=== PATIENT | female | born 1960 | race Asian ===

== ENCOUNTER → 2022-05-07 11:27 | Outpatient (CLI) | payer OTHER, SELFPAY ==
--- NOTE | 2022-05-07 | DI.MG.S_ITS ---
BILATERAL DIGITAL SCREENING MAMMOGRAM 3D/2D WITH CAD: 05/07/2022 CLINICAL: Baseline exam. Routine screening. No prior exams were available for comparison. Both breasts are heterogeneously dense, which may obscure small masses (category c / 51-75% glandular tissue). Current study was also evaluated with a Computer Aided Detection (CAD) system. There are benign post operative findings in the right breast. No significant masses, calcifications, or other findings are seen in either breast. IMPRESSION: BENIGN There is no mammographic evidence of malignancy. A 1 year screening mammogram is recommended. Based on the Tyrer Cuzick model (a risk assessment model) the patient's lifetime risk is 8.9% and her 10 year risk is 4.0%. According to the ACR, ACS, and NCCN guidelines, an annual breast MRI exam along with mammogram is recommended if the patient's lifetime risk is 20% or greater. This exam was interpreted at Station ID: [id number]. NOTE: For mammograms, a report in lay terms will be sent to the patient. Approximately 15% of breast malignancies will not be visualized mammographically. In the management of a palpable breast mass, a negative mammogram must not discourage biopsy of a clinically suspicious lesion. Electronically Signed By: Rafael paige/edith:05/08/2022 08:50:06 letter sent: Normal Exam ACR BI-RADS Category 2: Benign Finding(s) 3342F
--- NOTE | 2022-05-07 12:28 | DI.DEXA.S_ITS ---
Indication: postmenopausal; screening for osteoporosis; Referring Provider: JBO EVANS Study: Bone densitometry was performed. Exam Date: May 07, 2022 Accession number: [id number] Bone Density: Region BMD T-score Z-score Classification AP Spine(L1-L4) 0.846 -1.8 -0.2 Osteopenia Femoral Neck (Left) 0.642 -1.9 -0.4 Osteopenia Total Hip (Left) 0.872 -0.6 0.6 Normal Femoral Neck (Right) 0.671 -1.6 -0.2 Osteopenia Total Hip (Right) 0.860 -0.7 0.5 Normal Total Hip Mean 0.866 -0.7 0.6 Normal World Health Organization criteria for BMD impression classify patients as: Normal (T-score at or above -1.0), Osteopenia (T-score between -1.0 and -2.5), or Osteoporosis (T-score at or below -2.5). 10-year Fracture Risk(1): Major Osteoporotic Fracture 5.1% Hip Fracture 0.7% Reported Risk Factors: [place] (), Neck BMD=0.642, BMI=22.9 (1) FRAX(R) Version 3.08. Fracture probability calculated for an untreated patient. Fracture probability may be lower if the patient has received treatment. Impression: The patient has low bone mass, based on the Left Femoral Neck T-score. The patient has an estimated ten-year risk of hip fracture of 0.7% and an estimated ten-year risk of major fracture of 5.1%, based on the WHO FRAX algorithm. Discussion: BONE DENSITY IS LOW AT ONE OR MORE SKELETAL SITES. This patient's lowest T-score is low at one or more skeletal sites. It meets the World Health Organization's (WHO) criteria for ?low bone mass? (T-score between -1.0 and -2.5). The patient's 10-year risk of fracture as calculated by FRAX is less than the threshold where pharmacological therapy is recommended by the National Osteoporosis Foundation (NOF). However, all treatment decisions require clinical judgment and consideration of individual patient factors, including patient preferences, comorbidities, previous drug use, risk factors not captured in the FRAX model (e.g., frailty, falls, vitamin D deficiency, increased bone turnover, interval significant decline in bone density) and possible under or overestimation of fracture risk by FRAX. The patient should follow a healthful lifestyle (good nutrition with adequate calcium and vitamin D, and appropriate weight-bearing exercise). Follow-Up: Consider repeating this study in 2 to 3 years to reassess this patient's status, or sooner if there is some new clinical indication. Reported by: KRISHAN MORILLO MD on 05/07/2022 12:37:00 PM.
== END ==
PROVIDERS: PCP Family Medicine; Referring Provider Family Medicine; Visit Provider Family Medicine
DX: Z12.31 Encounter for screening mammogram for malignant neoplasm of breast (principal); Z78.0 Asymptomatic menopausal state; Z13.820 Encounter for screening for osteoporosis; M85.852 Other specified disorders of bone density and structure, left thigh
CPT/HCPCS: 77063; 77067; 77080

== ENCOUNTER 2024-03-09 23:19 | Emergency (ER) | payer OTHER, SELFPAY ==
[2024-03-09 23:32] VITALS: BP 163/78; PULSE 108; RESP 22; TEMP 37.7; O2SAT 97; BMI 26.6
--- NOTE | 2024-03-09 23:42 | DI.RAD.S_ITS ---
PROCEDURE: XR CHEST 1V INDICATIONS: suspected sepsis TECHNIQUE: One view of the chest was acquired. COMPARISON: None. FINDINGS: Surgical changes and devices: None. Lungs and pleura: Lungs are clear. No pleural effusions or pneumothorax. Mediastinum: Mediastinal contours appear normal. Heart size is normal. Bones and chest wall: No suspicious bony lesions. Overlying soft tissues appear unremarkable. IMPRESSION: No acute cardiopulmonary abnormality is seen. Approved by: Claire Bowser M.D.,Ph.D. on 03/10/2024 at 0:45
--- NOTE | 2024-03-09 23:52 | EKG_ITS ---
[address] [address] Test Date: 2024-03-09 Pat Name: Chelly Madrid Department: Located Within [facility] Room: Gender: Female [employer] Work[employer]: SANKET : 1960 Requested By: Order Number: [id number] Reading MD: Omid Dhillon Measurements Intervals [place] Rate: 116 P: 56 VT: 168 QRS: 59 QRSD: 70 T: 55 QT: 330 QTc: 458 Interpretive Statements Sinus tachycardia ST & T wave abnormality, consider anterior ischemia Electronically Signed On 03-12-2024 20:02:25 PST by Omid Dhillon
[2024-03-09 23:56] VITALS: PULSE 111; RESP 29
[2024-03-09 23:59] VITALS: BP 175/89; PULSE 113; RESP 24; O2SAT 97
[2024-03-10] VITALS: BP 176/88; PULSE 110; RESP 24; O2SAT 97
[2024-03-10 00:27] LABS: Add Manual Diff / Slide Review NO; Basophils Absolute Auto 0 /uL (0-100); Basophils Percent Auto 0.4 % (0-2); Eosinophils Absolute Auto 200 /uL (0-450); Eosinophils Percent Auto 1.6 % (2-4); Hematocrit 35.8 % (36-46); Hemoglobin 11.1 g/dL (12.0-16.0); Lymphocytes Absolute Auto 1900 /uL (1100-4500); Lymphocytes Percent Auto 17.8 % (25-40); Mean Corpuscular Hemoglobin 20.6 PG (26-34); Mean Corpuscular Volume 66.3 fL (80-100); Monocytes Absolute Auto 1100 /uL (0-900); Monocytes Percent Auto 10.6 % (3-14); Neutrophils Absolute Auto 7400 /uL (1500-7000); Neutrophils Percent Auto 69.6 % (50-75); Platelet Count 298 X10^3/uL (150-400); Red Cell Distribution Width 14.4 % (11.6-14.8); White Blood Cell Count 10.7 X10^3/uL (4.5-11.0)
[2024-03-10 00:30] VITALS: BP 159/76; PULSE 93; RESP 23; O2SAT 97
--- NOTE | 2024-03-10 00:31 | ED_ITS ---
HPI - General Adult General Chief complaint: Shortness of Breath/Dyspnea Stated complaint: SOB, cough, chills, fever Time Seen by Provider: 03/09/24 23:43 Source: patient Mode of arrival: Ambulatory History of Present Illness HPI narrative: 63-year-old female with cough for 1 month, feeling feverish last couple of days, with increasing shortness of breath. No chronic heart or lung problems. No history of tuberculosis, lung cancer, asthma, COPD. She denies lower extremity swelling. She denies history of heart failure problems. No exposure in household or close contacts with persons with recent COVID or influenza or other respiratory illness. No treatment tried. Related Data Allergies Allergy/AdvReac Type Severity Reaction Status Date / Time No Known Drug Allergies Allergy Verified 03/09/24 23:41 Patient History Social History Smoking Status: Never smoker Smoking Status: Never smoker Exam Narrative Exam Narrative: GENERAL: Well-developed patient, in mild distress. HEAD: Atraumatic. Normocephalic. EYES: Pupils equal round and reactive. Extraocular motions intact. No scleral icterus. No injection or drainage. ENT: Nose without bleeding, purulent drainage. Throat without erythema, tonsillar hypertrophy or exudate. Airway patent. NECK: Trachea midline. Non tender CARDIOVASCULAR: Mildly fast rate with regular rhythm, without murmurs, gallops, or rubs. RESPIRATORY: Clear to auscultation. Breath sounds equal bilaterally. No wheezes, rales, or rhonchi. GASTROINTESTINAL: Abdomen soft, non-tender, nondistended. EXTREMITIES: No edema or joint tenderness. BACK: Nontender without deformity or crepitance. No flank tenderness. NEURO: AOx3. Motor functions grossly nonfocal SKIN: No rash or erythema of visible areas Initial Vital Signs Initial Vital Signs: Vital Signs Temperature 99.8 F H 03/09/24 23:32 Pulse Rate 108 H 03/09/24 23:32 Respiratory Rate 22 03/09/24 23:32 Blood Pressure 163/78 H 03/09/24 23:32 Pulse Oximetry 97 03/09/24 23:32 Oxygen Delivery Method Room Air 03/09/24 23:32 Course Orders Ordered: Discontinued Medications Albuterol (Albuterol 2.5 Mg/3 Ml Neb (Adult)) 2.5 mg INH NOW ONE Stop: 03/10/24 00:34 Last Admin: 03/10/24 00:42 Dose: 2.5 mg Documented By: TRINA Albuterol (Albuterol Hfa Prepack) 1 box MISC DIRECTED ONE Stop: 03/10/24 01:36 Last Admin: 03/10/24 02:14 Dose: 1 box Documented By: ELSI Sodium Chloride (Normal Saline 0.9%) 1,000 mls @ 1,000 mls/hr IV BOLUS ONE Stop: 03/10/24 00:41 Last Infusion: 03/10/24 02:13 Dose: Infused Documented By: Admin: 03/10/24 00:36 Dose: 1,000 mls/hr Documented By: TRINA Ondansetron HCl (Ondansetron 4 Mg/2 Ml Inj) 4 mg IV NOW PRN PRN Reason: Nausea And Vomiting Ondansetron HCl (Ondansetron 4 Mg Odt) 4 mg SL NOW PRN PRN Reason: Nausea And Vomiting Vital Signs Vital signs: Vital Signs - 8 hr 03/09/24 23:32 03/09/24 23:56 03/09/24 23:59 Temperature 99.8 F H Pulse Rate 108 H 111 H 113 H Respiratory Rate 22 29 H 24 Blood Pressure 163/78 H Pulse Oximetry 97 97 Oxygen Delivery Method Room Air 03/09/24 23:59 03/10/24 00:00 03/10/24 00:00 Temperature Pulse Rate 110 H Respiratory Rate 24 Blood Pressure 175/89 H 176/88 H Pulse Oximetry 97 Oxygen Delivery Method 03/10/24 00:30 03/10/24 00:30 Temperature Pulse Rate 93 H Respiratory Rate 23 Blood Pressure 159/76 H Pulse Oximetry 97 Oxygen Delivery Method Medical Decision Making Lab Data Lab results reviewed: Yes I reviewed the patient's lab results. Lab results narrative: White blood cell count 36873, hemoglobin 11.1, platelets adequate. Basic metabolic panel unremarkable. Liver functions and lipase unremarkable. Lactate 2.1 noted, repeat lactate 1.7 lower. 03/10/24 00:11 03/10/24 00:11 Labs: Lab Results 03/10/24 03/10/24 03/10/24 Range/Units 00:11 00:20 02:05 WBC 10.7 (4.5-11.0) X10^3/uL RBC 5.40 H (4.0-5.2) X10^6/uL Hgb 11.1 L (12.0-16.0) g/dL Hct 35.8 L (36-46) % MCV 66.3 L (80-100) fL MCH 20.6 L (26-34) PG MCHC 31.0 (30-36) % RDW 14.4 (11.6-14.8) % Plt Count 298 (150-400) X10^3/uL Neut % (Auto) 69.6 (50-75) % Lymph % (Auto) 17.8 L (25-40) % [place] % (Auto) 10.6 (3-14) % Eos % (Auto) 1.6 L (2-4) % Baso % (Auto) 0.4 (0-2) % Neut # (Auto) 7400 H (9869-5841) /uL Lymph # (Auto) 1900 (2514-3566) /uL [place] # (Auto) 1100 H (0-900) /uL Eos # (Auto) 200 (0-450) /uL Baso # (Auto) 0 (0-100) /uL Platelet Estimate Adequate on smear RBC Morphology See below Hypochromasia 1+ H Anisocytosis 1+ H Microcytosis 1+ H PT 10.0 (9.4-12.5) SECONDS INR 0.9 (0.9-1.3) APTT 38 H (25.1-36.5) SECONDS Sodium 135 L (137-145) mmol/L Potassium 3.6 (3.4-5.1) mmol/L Chloride 101 (98-107) mmol/L Carbon Dioxide 22 (22-32) mmol/L BUN 8 (7-17) mg/dL Creatinine 0.82 (0.52-1.04) mg/dL Estimated GFR > 60 (>60) mL/min BUN/Creatinine Ratio 9.8 (6-22) Glucose 186 H (80-110) mg/dL Lactate 2.1 1.7 (0.7-2.1) mmol/L Calcium 10.0 (8.4-10.2) mg/dL Total Bilirubin 0.3 (0.2-1.3) mg/dL AST 38 H (14-36) IU/L ALT 41 H (<35) IU/L Alkaline Phosphatase 82 (38-126) U/L Total Protein 8.0 (6.3-8.2) g/dL Albumin 4.7 (3.5-5.0) g/dL Globulin 3.3 (1.7-4.1) g/dL Albumin/Globulin Ratio 1.4 (1.0-2.8) Lipase 154 (23-300) U/L Procalcitonin 0.103 (<0.5) ng/mL SARS-CoV-2 (PCR) Negative (Negative) Influenza A (RT-PCR) Flu a negative (NEGATIVE) Influenza B (RT-PCR) Flu b negative (NEGATIVE) RSV (PCR) Negative (Negative) ECG Data Attestation: I personally reviewed and interpreted this ECG as follows: Interpretation: Sinus tachycardia with rate of 116, no obvious ST segment elevation or depression changes. MI 168, QRS 70, QTC 458. MDM Narrative Medical decision making narrative: 63yo femal with recent weeks cough without specific diagnosis, more short of breath for two days, no fever, no chest pain, no leg swelling, mild sinus tachycardia noted, no leg swelling or tenderness. Covid/flu swa sent, trial of breathing treatment, CXR ordered, labs sent. EKG sinus tachy without obvious ischemia. CXR negative. Labs normal WBC, lactate 2.1 decreased to 1.7 after IV fluids. Tachycardia resolved after IVF. Doubt PE. History exam and course consistent with recent viral illness, possible component bronchospasm by subjective response to bronchodilator. Symptoms improved with breathing treatment, no oxygen requirement. Will DC on Albuterol inhaler with spacer, dispensed with teaching in ED. Home with family, Recheck with PCP, stable, improved, return precautions discussed. Discharge Plan Departure Patient Disposition: Home Clinical Impression: Acute upper respiratory infection, Shortness of breath Instructions: DI for Viral Upper Respiratory Infection -- Adult Activity Restrictions/Additional Instructions: Recent cough and sensation of shortness of breath. Normal oxygenation noted on triage vitals, no fever. Lab studies were sent, normal white blood cell count, no inflammatory changes, unremarkable blood test results. Swab was sent for COVID/influenza/RSV viruses and all were negative. Chest x-ray showed no obvious infiltrates, no infection or pneumonia changes noted. You had a breathing treatment and seemed to feel better with your shortness of breath. It is possible you might be having some bronchospasm that might be cough cold viral related, or perhaps not even infection related, could be in response to recent cold weather or other allergic irritant. Trial of inhaler for now as an outpatient. It is possible that you might be having viral unless that is not where the for pathogens on the swab, as there are many other viruses that are active that are not detectable on that swab. There are no specific antiviral medicines that are affected these many other viruses that could be active. Trial of inhaler for now. Please use the inhaler with a spacer. Albuterol inhaler with spacer, 2 puffs 4 times daily for the next week or so, then as needed. Recheck symptoms in the next few days with your regular doctor if symptoms persist. Return to this/nearest emergency department for any change worsening symptoms or any concerns prior Referrals: Oliva Candelaria MD [Primary Care Provider] - Stand Alone Forms: Patient Portal/API/Survey
[2024-03-10 00:33] LABS: INR 0.9 (0.9-1.3)
[2024-03-10 00:35] LABS: PTT Partial Thromboplastin Tim 38 SECONDS (25.1-36.5)
[2024-03-10] MEDS: SODIUM CHLORIDE 0.9% 1,000 ML 1000 ML IV (00:36)
[2024-03-10 00:37] LABS: Alanine Aminotransferase 41 IU/L (<35); Albumin 4.7 g/dL (3.5-5.0); Albumin Globulin Ratio 1.4 (1.0-2.8); Alkaline Phosphatase 82 U/L (38-126); Aspartate Aminotransferase 38 IU/L (14-36); BUN Creatinine Ratio 9.8 (6-22); Bilirubin Total 0.3 mg/dL (0.2-1.3); Blood Urea Nitrogen 8 mg/dL (7-17); Carbon Dioxide 22 mmol/L (22-32); Chloride 101 mmol/L (98-107); Estimated Glomerular Filt Rate > 60 mL/min (>60); Globulin 3.3 g/dL (1.7-4.1); Glucose 186 mg/dL (80-110); HEMOLYSIS < 15 (0-50); Lactate (Lactic Acid) 2.1 mmol/L (0.7-2.1); Lipase 154 U/L (23-300); Potassium 3.6 mmol/L (3.4-5.1); Sodium 135 mmol/L (137-145)
[2024-03-10] MEDS: ALBUTEROL 2.5 MG/3 ML NEB (ADULT) INH (00:42)
[2024-03-10 00:54] LABS: Procalcitonin 0.103 ng/mL (<0.5)
[2024-03-10 01:00] VITALS: BP 165/73; PULSE 95; RESP 24; O2SAT 98
[2024-03-10 01:02] LABS: Influenza A - CEPHEID Flu A NEGATIVE (NEGATIVE); Influenza B - CEPHEID Flu B NEGATIVE (NEGATIVE); Respiratory Syncytial Virus Negative (Negative)
[2024-03-10 01:03] LABS: COVID-19 CEPHEID 4-PLEX PCR Negative (Negative)
[2024-03-10 01:05] LABS: Platelet Estimate Adequate on smear
[2024-03-10 01:06] LABS: Anisocytosis 1+; Hypochromasia 1+; Microcytosis 1+
--- NOTE | 2024-03-10 01:07 | PC.NURSE ---
shortness of breath has improved after nebulizer treatment
[2024-03-10 01:30] VITALS: BP 173/82; PULSE 93; RESP 23; O2SAT 100
[2024-03-10 01:57] LABS: Reflexed Lactate in 2 Hours Y
[2024-03-10 02:00] VITALS: BP 147/72; PULSE 95; RESP 19; O2SAT 97
[2024-03-10] MEDS: ALBUTEROL HFA PREPACK 1 BOX MISC (02:14)
[2024-03-10 02:24] LABS: Lactate 2HR (Lactic Acid Rflx) 1.7 mmol/L (0.7-2.1)
--- NOTE | 2024-03-10 02:24 | PC.NURSE ---
MDI spacer training completed.
== END 2024-03-10 02:27 | disposition home or self-care (01) ==
PROVIDERS: Emergency Provider Emergency Medicine; PCP Family Medicine
DX: J06.9 Acute upper respiratory infection, unspecified (principal); R06.02 Shortness of breath; R00.0 Tachycardia, unspecified; R05.9 Cough, unspecified
CPT/HCPCS: 0241U; 36415; 71045; 80053; 83605; 83690; 84145; 85025; 85610; 85730; 87040; 93005; 96360; 96361; 99284; J7613